=== PATIENT | male | born 1965 | race Two or more races ===

== ENCOUNTER 2022-03-16 19:13 | Inpatient (IN) | payer MEDICARE, OTHER ==
[~2022-03-16] VITALS: Ht 182.9 cm; Wt 108.0 kg
[2022-03-16 21:30] VITALS: BP 124/80
--- NOTE | 2022-03-16 21:30 | NUR ---
GPS MEAT GRADER NOTES: ADMITTED A 57-Y/O, MALE, FROM [facility]. ADMITTED ON 5150 FOR GD. PER HOLD, PATIENT WITH HISTORY OF SCHIZOPHRENIA, OFF MEDICATIONS FOR WEEKS, PRESENTS PLEASANT BUT DISORGANIZED AND CONFUSED, UNABLE TO FORMULATE PLAN FOR SELF CARE. UPON FACE TO FACE ASSESSMENT, PATIENT IS ALERT AND ORIENTED X3, COOPERATIVE, GUARDED, LABILE AND NEEDY. DENIED SI/HI/AVH AT THIS TIME. SKIN ASSESSMENT DONE. SKIN IS CLEAR. HANDBOOK AND PRESCRIPTION MEDICATIONS GUIDE GIVEN TO PATIENT. PATIENT HAS BEEN ORIENTED TO UNIT POLICY. BELONGINGS WERE INVENTORIED AND CHECKED FOR CONTRABAND. PATIENT IS UNDER THE PSYCHIATRIC CARE OF DR. PAVON AND MEDICAL CARE OF DR. OCAMPO. BED IN LOW AND LOCKED POSITION. SIDE RAILS UP X2. SAFETY PRECAUTIONS MAINTAINED. WILL CONTINUE TO MONITOR Q15 MINS FOR MOOD, SAFETY AND BEHAVIOR.
[2022-03-16] MEDS ORDERED: BLOOD SUGAR DIAGNOSTIC 1 EACH STRIP IN ONE (22:30)
[2022-03-16] MEDS ORDERED: MAGNESIUM HYDROXIDE 30 ML UDC PO PRN (22:30)
[2022-03-16] MEDS ORDERED: MAG HYDROX/AL HYDROX/SIMETH 30 ML UDC PO PRN (22:30)
[2022-03-16] MEDS: TEMAZEPAM 7.5 MG CAPSULE PO PRN (22:46)
[2022-03-16] MEDS: ACETAMINOPHEN 325 MG TABLET PO PRN (22:46)
[2022-03-17] MEDS: LORAZEPAM 0.5 MG TABLET PO PRN (01:46)
--- NOTE | 2022-03-17 01:48 | NUR ---
RN NOTES PT STATED FEELING ANXIOUS.PRN ATIVAN 0.5MG WAS GIVEN.NO SIGN SOB/DISTRESS NOTED.
[2022-03-17] MEDS ORDERED: LIDO30AD10 TP (02:04)
[2022-03-17] MEDS ORDERED: SIMV40TA2 PO (02:04)
[2022-03-17] MEDS ORDERED: PREG75CA PO (02:04)
[2022-03-17] MEDS ORDERED: NIAC1000 PO (02:04)
[2022-03-17] MEDS ORDERED: DIVA500T54 PO (02:04)
[2022-03-17] MEDS ORDERED: LUBI24CA5 PO (02:04)
[2022-03-17] MEDS ORDERED: PROP10TA68 PO (02:04)
[2022-03-17] MEDS ORDERED: MONT10TA22 PO (02:04)
[2022-03-17] MEDS ORDERED: SERT100T PO (02:04)
[2022-03-17] MEDS ORDERED: LEVO50TA PO (02:04)
[2022-03-17] MEDS ORDERED: TORADOL PO (02:04)
[2022-03-17] MEDS ORDERED: DEXL60CA3 PO (02:04)
[2022-03-17] MEDS ORDERED: CLON1TAB12 PO (02:04)
[2022-03-17] MEDS ORDERED: MIRT15TA3 PO (02:04)
[2022-03-17] MEDS ORDERED: IBUP-23 PO (02:04)
[2022-03-17] MEDS ORDERED: CANA100T PO (02:04)
[2022-03-17] MEDS ORDERED: CLOZ100T32 PO (02:04)
[2022-03-17] MEDS ORDERED: METF-442 PO (02:04)
[2022-03-17] MEDS ORDERED: NICO-761 TD (02:04)
[2022-03-17] MEDS ORDERED: KETOROLAC PO SCH (02:30)
--- NOTE | 2022-03-17 06:09 | NUR ---
GPS RN NOTES: LEFT VOICE MESSAGE TO PATIENT'S SISTER ARTUR WELCH ([phone]). WILL ENDORSE TO DAY SHIFT NURSE FOR CONTINUITY OF CARE.
[2022-03-17] MEDS: LEVOTHYROXINE SODIUM 50 MCG TABLET PO SCH (07:30)
[2022-03-17] MEDS: PANTOPRAZOLE 40 MG TABLET.DR PO SCH (07:30)
[2022-03-17 08:00] VITALS: BP 112/76
[2022-03-17] MEDS: METFORMIN 500 MG TABLET PO SCH ×2 (08:00→18:04)
[2022-03-17 08:08] LABS: CHOLESTEROL 189 mg/dL (<200); HDL CHOLESTEROL 43 mg/dL (40-60); LDL 85 mg/dL (0-99); TRIGLYCERIDES 461 mg/dL (30-150)
[2022-03-17 08:14] LABS: ALBUMIN 3.8 g/dL (3.4-5.0); BILIRUBIN,TOTAL 0.4 mg/dL (0.2-1.0); CALCIUM, SERUM 9.3 mg/dL (8.5-10.1); CREATININE 0.9 mg/dL (0.6-1.3); POTASSIUM 4.6 mmol/L (3.5-5.1); TOTAL PROTEIN, SERUM 7.6 g/dL (6.4-8.2)
[2022-03-17 08:48] LABS: THYROID STIMULATING HORMONE 4.627 uIU/mL (0.358-3.74)
[2022-03-17] MEDS ORDERED: DIVALPROEX SODIUM 500 MG TABLET.DR PO SCH (09:00)
[2022-03-17] MEDS ORDERED: NIACIN EXT TAB (500MG) 500 MG TABLET.SA PO SCH ×2 (09:00)
[2022-03-17] MEDS: MONTELUKAST SODIUM (10MG) 10 MG TABLET PO SCH (09:00)
[2022-03-17] MEDS: PROPRANOLOL HCL 10 MG TABLET PO SCH (09:00)
[2022-03-17] MEDS ORDERED: Medication Not On Formulary EA (Lubiprostone (Amitiza) 24 MCG) PO SCH (09:00)
[2022-03-17] MEDS: NICOTINE PATCH (14MG) 14 MG PATCH.TD24 TD SCH (09:37)
[2022-03-17] MEDS: LIDOCAINE 5% (PATCH) 1 EA PATCH TP SCH (09:37)
[2022-03-17] MEDS: PREGABALIN 25 MG CAPSULE PO SCH ×3 (09:38→17:59)
--- NOTE | 2022-03-17 11:29 | NUR ---
VEENA Initial Discharge Plan: Patient currently resides home alone located at [address] [place] [address]; ([phone]). Patient would want to return back home upon discharge. VEENA will work with the MD, treatment team, and family to help coordinate appropriate discharge.
--- NOTE | 2022-03-17 11:29 | NUR ---
VEENA Clinical Note: Patient placed on a 5150 hold for GD. Patient brought to the hospital due to not taking medications at home and has become disorganized. Patient currently resides home alone located at [address] [place] [phone]; ([phone]). Patient would want to return back home upon discharge.
[2022-03-17] MEDS ORDERED: CLOZAPINE 25 MG TABLET PO SCH ×2 (11:30→17:00)
--- NOTE | 2022-03-17 11:30 | NUR ---
Treatment Plan: Pt refused to sign treatment plan and was suspicious.
[2022-03-17] MEDS: DIVALPROEX SODIUM 500 MG TABLET.DR PO SCH ×2 (13:00→21:11)
--- NOTE | 2022-03-17 14:00 | NUR ---
VEENA Family Contact: VEENA contacted pt's sister Mary ([phone]) and discussed treatment/discharge plan.
[2022-03-17 14:57] LABS: BASOPHILS # (AUTO) 0.1 K/uL (0.0-0.2); BASOPHILS % (AUTO) 0.8 % (0.0-2.0); HEMATOCRIT 41 % (39-51); HEMOGLOBIN 13.7 g/dL (13.5-17.5); LYMPHOCYTES # (AUTO) 1.8 K/uL (0.8-4.8); LYMPHOCYTES % (AUTO) 26.8 % (20.0-44.0); MEAN CORPUSCULAR HGB CONC 34 g/dl (31.0-36.0); MEAN CORPUSCULAR VOLUME 89 fL (80-96); MONOCYTES # (AUTO) 0.9 K/uL (0.1-1.30); MONOCYTES % (AUTO) 13.4 % (2.0-12.0); PLATELET COUNT (AUTO) 88 K/uL (150-450); RED BLOOD CELL COUNT(AUTO) 4.55 MIL/uL (4.5-6.0); WHITE BLOOD COUNT (AUTO) 6.7 K/uL (4.3-11.0)
[2022-03-17 16:00] VITALS: BP 135/75
--- NOTE | 2022-03-17 17:41 | NUR ---
RN-CO: Patient is c/o big left toe pain. Dr Catherine ordered podiatry consult noted.
[2022-03-17 19:37] VITALS: BP 113/79
[2022-03-17] MEDS: SIMVASTATIN 20 MG TABLET PO SCH (21:11)
[2022-03-17] MEDS: ACETAMINOPHEN 325 MG TABLET PO PRN (21:12)
[2022-03-17] MEDS ORDERED: CLOZAPINE 100 MG TABLET PO SCH (22:00)
[2022-03-17] MEDS ORDERED: SIMVASTATIN 40 MG TABLET PO SCH (22:00)
[2022-03-17] MEDS ORDERED: MIRTAZAPINE SOLUTAB 15 MG/UDTABLET TAB.RAPDIS PO SCH (22:00)
[2022-03-17] MEDS: TEMAZEPAM 7.5 MG CAPSULE PO PRN (22:16)
[2022-03-18 08:00] VITALS: BP 139/70
--- NOTE | 2022-03-18 08:30 | NUR ---
C/O DIZZINESS,BP RECHECKED AND 123/75,HEART RATE 79,INSISTS ON WALKING AROUND ALTHOUGH NURSE ADVISED HIM TO LIE DOWN WITH THE DIZZINESS.
[2022-03-18] MEDS: PANTOPRAZOLE 40 MG TABLET.DR PO SCH (08:33)
[2022-03-18] MEDS: METFORMIN 500 MG TABLET PO SCH ×2 (08:33→17:58)
[2022-03-18] MEDS: PREGABALIN 25 MG CAPSULE PO SCH ×3 (08:34→17:59)
[2022-03-18] MEDS: PROPRANOLOL HCL 10 MG TABLET PO SCH (08:37)
[2022-03-18] MEDS: DIVALPROEX SODIUM 500 MG TABLET.DR PO SCH ×3 (08:40→21:34)
[2022-03-18] MEDS: MONTELUKAST SODIUM (10MG) 10 MG TABLET PO SCH (08:40)
[2022-03-18] MEDS: LIDOCAINE 5% (PATCH) 1 EA PATCH TP SCH (08:41)
[2022-03-18] MEDS: LEVOTHYROXINE SODIUM 50 MCG TABLET PO SCH (08:41)
[2022-03-18] MEDS: CLOZAPINE 25 MG TABLET PO SCH ×2 (09:00→17:59)
[2022-03-18] MEDS: NICOTINE PATCH (14MG) 14 MG PATCH.TD24 TD SCH (09:21)
[2022-03-18] MEDS ORDERED: MECLIZINE HCL 12.5 MG TABLET PO PRN (11:00)
[2022-03-18] MEDS: ACETAMINOPHEN 325 MG TABLET PO PRN (11:24)
--- NOTE | 2022-03-18 11:32 | NUR ---
MEDICATED WITH TYLENOL 650 MG FOR BACK AND NECK PAIN,BP RECHECKED IN ORDER TO GIVE CLOZARIL.AT THIS TIME 109/67 HEART RATE 81.STILL HOLDING CLOZARIL.
--- NOTE | 2022-03-18 12:00 | NUR ---
PT. VERBALIZED TO RN THAT HE FELT SUICIDAL.DR. PAVON IN FORMED.
[2022-03-18 16:00] VITALS: BP 138/70
[2022-03-18] MEDS: IBUPROFEN 200 MG TABLET PO PRN (16:22)
--- NOTE | 2022-03-18 16:26 | NUR ---
medicated for neck and back pain with motrin.
--- NOTE | 2022-03-18 18:25 | NUR ---
UA TO LAB.
[2022-03-18 20:00] VITALS: BP 115/72
[2022-03-18] MEDS: SIMVASTATIN 20 MG TABLET PO SCH (21:34)
[2022-03-18] MEDS ORDERED: CLOZAPINE 100 MG TABLET PO SCH (22:00)
[2022-03-19 06:36] LABS: BASOPHILS % (AUTO) 0.6 % (0.0-2.0); HEMATOCRIT 40 % (39-51); HEMOGLOBIN 14.1 g/dL (13.5-17.5); LYMPHOCYTES # (AUTO) 2.7 K/uL (0.8-4.8); LYMPHOCYTES % (AUTO) 41.6 % (20.0-44.0); MEAN CORPUSCULAR HGB CONC 35 g/dl (31.0-36.0); MEAN CORPUSCULAR VOLUME 88 fL (80-96); MONOCYTES # (AUTO) 0.7 K/uL (0.1-1.30); MONOCYTES % (AUTO) 10.9 % (2.0-12.0); NEUTROPHILS # (AUTO) 3.1 K/uL (1.8-8.9); NEUTROPHILS % (AUTO) 46.9 % (43.0-81.0); PLATELET COUNT (AUTO) 92 K/uL (150-450); RED BLOOD CELL COUNT(AUTO) 4.61 MIL/uL (4.5-6.0); WHITE BLOOD COUNT (AUTO) 6.6 K/uL (4.3-11.0)
[2022-03-19 07:07] LABS: CALCIUM, SERUM 9.1 mg/dL (8.5-10.1); MAGNESIUM 1.9 mg/dL (1.8-2.4); PHOSPHORUS 4.7 mg/dL (2.5-4.9); POTASSIUM 4.3 mmol/L (3.5-5.1)
[2022-03-19 08:00] VITALS: BP 120/64
[2022-03-19] MEDS: PANTOPRAZOLE 40 MG TABLET.DR PO SCH (08:07)
[2022-03-19] MEDS: METFORMIN 500 MG TABLET PO SCH ×2 (08:07→17:01)
[2022-03-19] MEDS: NICOTINE PATCH (14MG) 14 MG PATCH.TD24 TD SCH (08:07)
[2022-03-19] MEDS: DIVALPROEX SODIUM 500 MG TABLET.DR PO SCH ×3 (08:07→16:58)
[2022-03-19] MEDS: MONTELUKAST SODIUM (10MG) 10 MG TABLET PO SCH (08:07)
[2022-03-19] MEDS: PREGABALIN 25 MG CAPSULE PO SCH ×3 (08:07→16:59)
[2022-03-19] MEDS: CLOZAPINE 25 MG TABLET PO SCH ×2 (08:08→16:59)
[2022-03-19] MEDS: PROPRANOLOL HCL 10 MG TABLET PO SCH (08:08)
[2022-03-19] MEDS: LIDOCAINE 5% (PATCH) 1 EA PATCH TP SCH (08:08)
[2022-03-19] MEDS: LEVOTHYROXINE SODIUM 50 MCG TABLET PO SCH (08:08)
[2022-03-19 08:32] LABS: LYMPHOCYTES % (MANUAL) 39 % (16-48); MONOCYTES % (MANUAL) 13 % (0-11.0); NEUTROPHILS % (MANUAL) 48 (42-76)
--- NOTE | 2022-03-19 09:40 | NUR ---
WOUND CARE CONSULT: PT PRESENTS WITH CALLUSES TO BILATERAL GREAT TOES WITH PEELING SKIN BETWEEN TOES, PRESENT ON ADMISSION. PT REPORTS PAIN IN LEFT GREAT TOE. PT REFUSED FULL SKIN ASSESSMENT OF GROIN/BUTTOCKS AREAS. DR RUIZ NOTIFIED OF DPM CONSULT REQUEST. MD IN AGREEMENT WITH PLAN OF CARE.
[2022-03-19] MEDS: POLYETHYLENE GLYCOL 3350 17 GM POWD.PACK PO SCH (11:36)
[2022-03-19] MEDS: DOCUSATE SODIUM LIQ 100 MG/10 ML UDC PO SCH ×2 (11:36→17:00)
--- NOTE | 2022-03-19 14:22 | NUR ---
VEENA Note: Pt came to this writers office and appeared to be anxious. He reported that he does not want to go back home and wants to go to a facility. SW offered him facilities in [place] location and he was agreeable.
--- NOTE | 2022-03-19 14:23 | NUR ---
VEENA Family Contact: SW contacted pt's sister Mary ([phone]) and explained that pt came to this writers office and was anxious requesting to go to a facility instead of back home. She was agreeable of this.
--- NOTE | 2022-03-19 14:49 | NUR ---
SNF Referral: VEENA sent clinicals to Vikram from [facility] ([phone]) for placement option. SW sent H & P, progress notes, and medication list.
[2022-03-19 16:00] VITALS: BP 118/72
--- NOTE | 2022-03-19 19:30 | NUR ---
GPS RN NOTE, RECEIVED PATIENT AWAKE AND IN BED, NO S/S OR COMPLAINTS OF PAIN AT THIS TIME. PATIENT IS DISPLAYING NO S/S OF APPARENT DISTRESS AT THIS TIME. PATIENT BREATHING IS UNLABORED WITH EQUAL RISE AND FALL OF THE CHEST. PATIENT IS ALERT AND ORIENTED X 3 ON ROOM AIR WITH A SPO2 95%. PATIENT IS COMPLIANT WITH MEDICATIONS, ANXIOUS AT TIMES, NEEDY, AND COOPERATIVE. PATIENT DENIES SUICIDAL AND HOMICIDAL IDEATIONS AT THIS TIME. PATIENT ASSISTED WITH TURNING AND REPOSITIONING Q2HR AND PRN FOR COMFORT AND CIRCULATION. PATIENT HAS NO NEEDS AT THIS TIME. PATIENT EDUCATED ON THE USE OF THE CALL STALLWORTH. PATIENT BED SIDE RAILS UP X 2 FOR SAFETY. PATIENT BED IS LOCKED, LOW, WITH BED ALARM ON. WILL CONTINUE TO MONITOR THIS PATIENT Q15 MINUTES WITH THE HELP OF STAFF TO MAINTAIN SAFETY.
[2022-03-19 20:00] VITALS: BP 125/86
[2022-03-19] MEDS: SIMVASTATIN 20 MG TABLET PO SCH (21:27)
[2022-03-19] MEDS: TEMAZEPAM 7.5 MG CAPSULE PO PRN (21:28)
--- NOTE | 2022-03-19 21:28 | NUR ---
GPS RN NOTE, PATIENT HAS A COMPLAINT OF NOT BEING ABLE TO SLEEP AND IS REQUESTING RESTORIL AT THIS TIME. PATIENT VITAL SIGNS ARE STABLE. GAVE RESTORIL 7.5MG PO HS PRN ORDERED. WILL REASSESS FOR INSOMNIA AND I WILL CONTINUE TO MONITOR THIS PATIENT WITH THE HELP OF STAFF.
[2022-03-19] MEDS ORDERED: CLOZAPINE 100 MG TABLET PO SCH (22:00)
[2022-03-20] MEDS: LORAZEPAM 0.5 MG TABLET PO PRN (02:03)
--- NOTE | 2022-03-20 02:03 | NUR ---
GPS RN NOTE, PATIENT HAS A COMPLAINT OF FEELING ANXIOUS AND IS REQUESTING ATIVAN AT THIS TIME. PATIENT VITAL SIGNS ARE STABLE. GAVE ATIVAN 0.5MG PO Q6HR PRN ORDERED. WILL REASSESS FOR ANXIETY AND I WILL CONTINUE TO MONITOR THIS PATIENT WITH THE HELP OF STAFF.
[2022-03-20 06:44] LABS: BASOPHILS % (AUTO) 0.8 % (0.0-2.0); HEMATOCRIT 39 % (39-51); HEMOGLOBIN 13.5 g/dL (13.5-17.5); LYMPHOCYTES # (AUTO) 2.4 K/uL (0.8-4.8); LYMPHOCYTES % (AUTO) 40.1 % (20.0-44.0); MEAN CORPUSCULAR HGB CONC 35 g/dl (31.0-36.0); MEAN CORPUSCULAR VOLUME 87 fL (80-96); MONOCYTES # (AUTO) 0.8 K/uL (0.1-1.30); MONOCYTES % (AUTO) 13.1 % (2.0-12.0); NEUTROPHILS # (AUTO) 2.7 K/uL (1.8-8.9); PLATELET COUNT (AUTO) 84 K/uL (150-450); RED BLOOD CELL COUNT(AUTO) 4.47 MIL/uL (4.5-6.0)
[2022-03-20 07:20] LABS: ALBUMIN 3.5 g/dL (3.4-5.0); BILIRUBIN,TOTAL 0.7 mg/dL (0.2-1.0); CREATININE 1.2 mg/dL (0.6-1.3); POTASSIUM 4.1 mmol/L (3.5-5.1); TOTAL PROTEIN, SERUM 7.2 g/dL (6.4-8.2)
[2022-03-20 08:00] VITALS: BP 111/76
[2022-03-20] MEDS: POLYETHYLENE GLYCOL 3350 17 GM POWD.PACK PO SCH (08:26)
[2022-03-20] MEDS: NICOTINE PATCH (14MG) 14 MG PATCH.TD24 TD SCH (08:26)
[2022-03-20] MEDS: MONTELUKAST SODIUM (10MG) 10 MG TABLET PO SCH (08:26)
[2022-03-20] MEDS: PREGABALIN 25 MG CAPSULE PO SCH ×3 (08:26→16:47)
[2022-03-20] MEDS: LIDOCAINE 5% (PATCH) 1 EA PATCH TP SCH (08:26)
[2022-03-20] MEDS: METFORMIN 500 MG TABLET PO SCH ×2 (08:26→17:24)
[2022-03-20] MEDS: PROPRANOLOL HCL 10 MG TABLET PO SCH (08:27)
[2022-03-20] MEDS: DIVALPROEX SODIUM 500 MG TABLET.DR PO SCH ×3 (08:27→16:49)
[2022-03-20] MEDS: CLOZAPINE 25 MG TABLET PO SCH ×2 (08:28→16:49)
[2022-03-20] MEDS: DOCUSATE SODIUM LIQ 100 MG/10 ML UDC PO SCH ×2 (08:28→16:49)
[2022-03-20] MEDS: PANTOPRAZOLE 40 MG TABLET.DR PO SCH (08:28)
[2022-03-20] MEDS: LEVOTHYROXINE SODIUM 50 MCG TABLET PO SCH (08:28)
--- NOTE | 2022-03-20 09:12 | NUR ---
Pt. is complaining of burning and like he is on fire after taking the meds. Redness noted on the face, v/s taken: BP 118/79, DE 94, RR 18, temp 98.3 and oxygen sat 98%. Called Dr. Chawla at 09 and awaiting for the call back. Addendum: 03/20/22 at 0926 by STALIN MCNEAL RN Per pt. like he is on fire.
[2022-03-20] MEDS ORDERED: LIDOCAINE 5% OINT 35.44 GM TUBE TP PRN ×2 (09:30→10:00)
--- NOTE | 2022-03-20 09:54 | NUR ---
Called Dr. Chawla and was notified and ordered to stop Niacin.
--- NOTE | 2022-03-20 10:10 | NUR ---
RN Notes: Received pt. asleep in bed, breathing is even and unlabored. Ate 100% for breakfast and compliant on meds. Pt. is complaining of burning and said like he is on fire after taking the meds. Redness noted on the face, v/s taken: BP 118/79, UT 94, RR 18, temp 98.3 and oxygen sat 98%. Called Dr. Chawla and ordered to stopped the Niacin. Encouraged to attend group activity and encouraged to verbalize feelings. Will continue to monitor for safety.
--- NOTE | 2022-03-20 10:41 | NUR ---
SNF Contact: SW spoke with Vikram from [facility] ([phone]) who stated pt is accepted.
--- NOTE | 2022-03-20 14:35 | NUR ---
Court Notification: SW attempted to contact pt's sister aMry ([phone]) to notify of 5250 hearing. SW left a voicemail.
--- NOTE | 2022-03-20 15:01 | NUR ---
Court Hearing: Patient's court hearing for 4750 was today and it was upheld for GD.
[2022-03-20 16:00] VITALS: BP 118/74
[2022-03-20] MEDS: CLOTRIMAZOLE 1% 15 GM TUBE TP SCH (16:23)
[2022-03-20] MEDS: AMMONIUM LACTATE 227 GM BOTTLE TP SCH (16:24)
[2022-03-20 20:23] VITALS: BP 118/76
[2022-03-20 21:02] LABS: BILIRUBIN,URINE NEGATIVE (NEGATIVE); COLOR,URINE YELLOW (YELLOW); LEUKOCYTE ESTERASE ,URINE NEGATIVE (NEGATIVE); NITRITE, URINE NEGATIVE (NEGATIVE); PROTEIN,URINE TRACE mg/dl (NEGATIVE); UGLUCOSE NEGATIVE (NEGATIVE); UROBILINOGEN,URINE 0.2 EU/dL (0.2)
[2022-03-20] MEDS: TEMAZEPAM 7.5 MG CAPSULE PO PRN (21:09)
[2022-03-20] MEDS: SIMVASTATIN 20 MG TABLET PO SCH (21:10)
[2022-03-20 21:16] LABS: BACTERIA,URINE None seen /HPF (None Seen); MUCUS,URINE Few /LPF (None Seen); RBC,URINE 0-2 /HPF (0-2); SQUAMOUS EPITHELIAL CELL,UR 0-2 /HPF (None Seen); WBC,URINE 0-2 /HPF (0-3)
[2022-03-20] MEDS ORDERED: CLOZAPINE 100 MG TABLET PO SCH (22:00)
[2022-03-21] MEDS: LORAZEPAM 0.5 MG TABLET PO PRN (01:57)
[2022-03-21 08:00] VITALS: BP 119/65
[2022-03-21] MEDS: METFORMIN 500 MG TABLET PO SCH ×2 (08:28→17:07)
[2022-03-21] MEDS: NICOTINE PATCH (14MG) 14 MG PATCH.TD24 TD SCH (08:28)
[2022-03-21] MEDS: LIDOCAINE 5% (PATCH) 1 EA PATCH TP SCH (08:28)
[2022-03-21] MEDS: CLOZAPINE 25 MG TABLET PO SCH ×2 (08:28→16:27)
[2022-03-21] MEDS: PREGABALIN 25 MG CAPSULE PO SCH ×3 (08:28→16:27)
[2022-03-21] MEDS: PROPRANOLOL HCL 10 MG TABLET PO SCH (08:29)
[2022-03-21] MEDS: LEVOTHYROXINE SODIUM 50 MCG TABLET PO SCH (08:29)
[2022-03-21] MEDS: PANTOPRAZOLE 40 MG TABLET.DR PO SCH (08:29)
[2022-03-21] MEDS: MONTELUKAST SODIUM (10MG) 10 MG TABLET PO SCH (08:29)
[2022-03-21] MEDS: DIVALPROEX SODIUM 500 MG TABLET.DR PO SCH ×3 (08:29→16:27)
[2022-03-21] MEDS: DOCUSATE SODIUM LIQ 100 MG/10 ML UDC PO SCH ×2 (08:30→16:28)
[2022-03-21] MEDS: POLYETHYLENE GLYCOL 3350 17 GM POWD.PACK PO SCH (08:30)
[2022-03-21] MEDS: AMMONIUM LACTATE 227 GM BOTTLE TP SCH ×2 (09:09→16:32)
[2022-03-21] MEDS: CLOTRIMAZOLE 1% 15 GM TUBE TP SCH ×2 (09:09→16:32)
--- NOTE | 2022-03-21 09:34 | NUR ---
RN Notes: Received pt. asleep in bed, breathing is even and unlabored. Ate 100% for breakfast, compliant on meds. Pt. had shower and skin ointment applied and pt. is cooperative with the treatment. Encouraged to verbalize feelings and motivated to attend group activity. Needs attended and will continue to monitor for safety.
[2022-03-21 16:00] VITALS: BP 128/84
--- NOTE | 2022-03-21 19:30 | NUR ---
GPS RN NOTE, RECEIVED PATIENT AWAKE AND IN BED, NO S/S OR COMPLAINTS OF PAIN AT THIS TIME. PATIENT IS DISPLAYING NO S/S OF APPARENT DISTRESS AT THIS TIME. PATIENT BREATHING IS UNLABORED WITH EQUAL RISE AND FALL OF THE CHEST. PATIENT IS ALERT AND ORIENTED X 3 ON ROOM AIR WITH A SPO2 98%. PATIENT IS COMPLIANT WITH MEDICATIONS, ANXIOUS AT TIMES, NEEDY, HYPERVERBAL, FOCUSED ON DISCHARGE, AND COOPERATIVE. PATIENT DENIES SUICIDAL AND HOMICIDAL IDEATIONS AT THIS TIME. PATIENT ASSISTED WITH TURNING AND REPOSITIONING Q2HR AND PRN FOR COMFORT AND CIRCULATION. PATIENT HAS NO NEEDS AT THIS TIME. PATIENT EDUCATED ON THE USE OF THE CALL STALLWORTH. PATIENT BED SIDE RAILS UP X 2 FOR SAFETY. PATIENT BED IS LOCKED, LOW, WITH BED ALARM ON. WILL CONTINUE TO MONITOR THIS PATIENT Q15 MINUTES WITH THE HELP OF STAFF TO MAINTAIN SAFETY.
[2022-03-21 20:11] VITALS: BP 112/66
[2022-03-21] MEDS: IBUPROFEN 200 MG TABLET PO PRN (20:27)
--- NOTE | 2022-03-21 20:30 | NUR ---
GPS RN NOTE, PATIENT HAS A COMPLAINT OF CHRONIC PAIN AT A 8 OUT 10 ON THE PAIN SCALE AND IS REQUESTING MOTRIN AT THIS TIME. PATIENT VITAL SIGNS ARE STABLE. GAVE MOTRIN 600MG PO Q6HR PRN ORDERED. WILL REASSESS PAIN AND I WILL CONTINUE TO MONITOR THIS PATIENT WITH THE HELP OF STAFF.
[2022-03-21] MEDS: CLOZAPINE 100 MG TABLET PO SCH (21:27)
[2022-03-21] MEDS: SIMVASTATIN 20 MG TABLET PO SCH (21:27)
[2022-03-21] MEDS: TEMAZEPAM 7.5 MG CAPSULE PO PRN (21:27)
[2022-03-22] MEDS: LORAZEPAM 0.5 MG TABLET PO PRN ×2 (01:42→13:03)
--- NOTE | 2022-03-22 07:49 | NUR ---
RN NOTE PATIENT IS AWAKE IN BED RESTING A/O X 3. NO S/S OF PAIN NOTED AT THIS TIME. ON ROOM AIR, NO DISTRESS OR SHORTNESS OF BREATH NOTED. PATIENT IS COMPLIANT WITH MEDICATIONS. PATIENT DENIES SUICIDAL AND HOMICIDAL IDEATIONS AT THIS TIME. FALL AND SAFETY MEASURES IN PLACE, BED IN LOW AND LOCK POSITION, CALL LIGHT AND TABLE WITHIN EASY REACH, SIDE RAILS UP X2. PATIENT EDUCATED ON THE USE OF THE CALL STALLWORTH. PATIENT HAS NO NEEDS AT THIS TIME. WILL CONTINUE TO MONITOR THIS PATIENT Q15 MINUTES TO MAINTAIN SAFETY.
[2022-03-22 08:00] VITALS: BP 129/71
[2022-03-22] MEDS: LIDOCAINE 5% (PATCH) 1 EA PATCH TP SCH (08:36)
[2022-03-22] MEDS: METFORMIN 500 MG TABLET PO SCH ×2 (08:36→17:33)
[2022-03-22] MEDS: LEVOTHYROXINE SODIUM 50 MCG TABLET PO SCH (08:36)
[2022-03-22] MEDS: NICOTINE PATCH (14MG) 14 MG PATCH.TD24 TD SCH (08:36)
[2022-03-22] MEDS: DOCUSATE SODIUM LIQ 100 MG/10 ML UDC PO SCH ×3 (08:36→17:00)
[2022-03-22] MEDS: POLYETHYLENE GLYCOL 3350 17 GM POWD.PACK PO SCH ×2 (08:36→09:00)
[2022-03-22] MEDS: MONTELUKAST SODIUM (10MG) 10 MG TABLET PO SCH (08:37)
[2022-03-22] MEDS: DIVALPROEX SODIUM 500 MG TABLET.DR PO SCH ×3 (08:37→17:25)
[2022-03-22] MEDS: PROPRANOLOL HCL 10 MG TABLET PO SCH (08:37)
[2022-03-22] MEDS: PREGABALIN 25 MG CAPSULE PO SCH ×3 (08:37→17:25)
[2022-03-22] MEDS: CLOZAPINE 25 MG TABLET PO SCH ×2 (08:38→17:30)
[2022-03-22] MEDS: CLOTRIMAZOLE 1% 15 GM TUBE TP SCH ×2 (08:44→17:28)
[2022-03-22] MEDS: AMMONIUM LACTATE 227 GM BOTTLE TP SCH ×2 (08:44→17:27)
[2022-03-22] MEDS: IBUPROFEN 200 MG TABLET PO PRN ×3 (08:55→21:27)
[2022-03-22] MEDS: PANTOPRAZOLE 40 MG TABLET.DR PO SCH (09:18)
[2022-03-22 16:00] VITALS: BP 118/55
--- NOTE | 2022-03-22 18:39 | NUR ---
RN CLOSING NOTE PATIENT IS AWAKE IN BED RESTING A/O X 3. NO S/S OF PAIN NOTED AT THIS TIME. ON ROOM AIR, NO DISTRESS OR SHORTNESS OF BREATH NOTED. PATIENT IS COMPLIANT WITH MEDICATIONS. PATIENT DENIES SUICIDAL AND HOMICIDAL IDEATIONS AT THIS TIME. FALL AND SAFETY MEASURES IN PLACE, BED IN LOW AND LOCK POSITION, CALL LIGHT AND TABLE WITHIN EASY REACH, SIDE RAILS UP X2. PATIENT EDUCATED ON THE USE OF THE CALL STALLWORTH. PATIENT HAS NO NEEDS AT THIS TIME. PATIENT WAS MONITOR Q15 MINUTES TO MAINTAIN SAFETY. WILL ENDORSE TO LICENSE ISSUER.
[2022-03-22 19:43] VITALS: BP 104/57
[2022-03-22 20:00] VITALS: BP 129/71
--- NOTE | 2022-03-22 20:37 | NUR ---
RN OPENING NOTES RECEIVED PT IN [address] WALKING WITH NO BEHAVIORAL CHANGES NOTED.CONTINUE TO MONITOR.
[2022-03-22] MEDS: SIMVASTATIN 20 MG TABLET PO SCH (21:11)
[2022-03-22] MEDS: CLOZAPINE 100 MG TABLET PO SCH (21:11)
[2022-03-23] MEDS: LEVOTHYROXINE SODIUM 50 MCG TABLET PO SCH (07:30)
[2022-03-23] MEDS: PANTOPRAZOLE 40 MG TABLET.DR PO SCH (07:30)
[2022-03-23 08:00] VITALS: BP 124/77
[2022-03-23] MEDS: DIVALPROEX SODIUM 500 MG TABLET.DR PO SCH ×3 (08:59→17:32)
[2022-03-23] MEDS: POLYETHYLENE GLYCOL 3350 17 GM POWD.PACK PO SCH (08:59)
[2022-03-23] MEDS: NICOTINE PATCH (14MG) 14 MG PATCH.TD24 TD SCH (08:59)
[2022-03-23] MEDS: MONTELUKAST SODIUM (10MG) 10 MG TABLET PO SCH (08:59)
[2022-03-23] MEDS: METFORMIN 500 MG TABLET PO SCH ×2 (08:59→17:30)
[2022-03-23] MEDS: PROPRANOLOL HCL 10 MG TABLET PO SCH (09:00)
[2022-03-23] MEDS: PREGABALIN 25 MG CAPSULE PO SCH ×3 (09:00→17:30)
[2022-03-23] MEDS: CLOZAPINE 25 MG TABLET PO SCH ×2 (09:00→17:30)
[2022-03-23] MEDS: DOCUSATE SODIUM LIQ 100 MG/10 ML UDC PO SCH ×2 (09:00→17:30)
[2022-03-23] MEDS: CLOTRIMAZOLE 1% 15 GM TUBE TP SCH ×2 (09:03→17:33)
[2022-03-23] MEDS: AMMONIUM LACTATE 227 GM BOTTLE TP SCH ×2 (09:03→17:33)
[2022-03-23] MEDS: LIDOCAINE 5% (PATCH) 1 EA PATCH TP SCH (09:05)
[2022-03-23 16:00] VITALS: BP 106/57
--- NOTE | 2022-03-23 19:38 | NUR ---
GPS RN NOTE RECEIVED PATIENT SLEEPING IN BED A/O X 3. NO S/S OF PAIN NOTED AT THIS TIME. ON ROOM AIR, NO DISTRESS OR SHORTNESS OF BREATH NOTED. PATIENT IS COMPLIANT WITH MEDICATIONS. PATIENT DENIES SUICIDAL AND HOMICIDAL IDEATIONS AT THIS TIME. FALL AND SAFETY MEASURES IN PLACE, BED IN LOW AND LOCK POSITION, CALL LIGHT AND TABLE WITHIN EASY REACH, SIDE RAILS UP X2. WILL CONTINUE TO MONITOR THROUGHOUT THE SHIFT.
[2022-03-23 20:31] VITALS: BP 107/52
[2022-03-23] MEDS: CLOZAPINE 100 MG TABLET PO SCH (21:24)
[2022-03-23] MEDS: SIMVASTATIN 20 MG TABLET PO SCH (21:25)
[2022-03-23] MEDS: TEMAZEPAM 7.5 MG CAPSULE PO PRN (22:50)
--- NOTE | 2022-03-24 06:40 | NUR ---
GPS RN CLOSING NOTE PATIENT SLEEPING IN BED A/O X 3, ABLE TO MAKE NEEDS KNOWN, NO S/S OF PAIN NOTED AT THIS TIME. ON ROOM AIR, NO DISTRESS OR SHORTNESS OF BREATH NOTED. PATIENT IS COMPLIANT WITH MEDICATIONS. ALL DUE MEDS GIVEN MD ORDERED. FALL AND SAFETY MEASURES IN PLACE, BED IN LOWEST AND LOCK POSITION, CALL LIGHT AND TABLE WITHIN EASY REACH, SIDE RAILS UP X2. WILL ENDORSE TO AM SHIFT FOR ABRAM.
[2022-03-24] MEDS: PANTOPRAZOLE 40 MG TABLET.DR PO SCH (07:30)
[2022-03-24] MEDS: LEVOTHYROXINE SODIUM 50 MCG TABLET PO SCH (07:30)
[2022-03-24 08:00] VITALS: BP 114/76
[2022-03-24] MEDS: DOCUSATE SODIUM LIQ 100 MG/10 ML UDC PO SCH ×2 (08:49→17:00)
[2022-03-24] MEDS: DIVALPROEX SODIUM 500 MG TABLET.DR PO SCH ×3 (08:49→17:22)
[2022-03-24] MEDS: NICOTINE PATCH (14MG) 14 MG PATCH.TD24 TD SCH (08:49)
[2022-03-24] MEDS: POLYETHYLENE GLYCOL 3350 17 GM POWD.PACK PO SCH (08:49)
[2022-03-24] MEDS: PREGABALIN 25 MG CAPSULE PO SCH ×3 (08:50→17:21)
[2022-03-24] MEDS: MONTELUKAST SODIUM (10MG) 10 MG TABLET PO SCH (08:50)
[2022-03-24] MEDS: METFORMIN 500 MG TABLET PO SCH ×2 (08:50→17:38)
[2022-03-24] MEDS: LIDOCAINE 5% (PATCH) 1 EA PATCH TP SCH (08:50)
[2022-03-24] MEDS: PROPRANOLOL HCL 10 MG TABLET PO SCH (08:50)
[2022-03-24] MEDS: CLOZAPINE 25 MG TABLET PO SCH ×2 (08:50→17:22)
[2022-03-24] MEDS: CLOTRIMAZOLE 1% 15 GM TUBE TP SCH ×2 (08:51→17:22)
[2022-03-24] MEDS: AMMONIUM LACTATE 227 GM BOTTLE TP SCH ×2 (08:51→17:24)
[2022-03-24] MEDS: IBUPROFEN 200 MG TABLET PO PRN (08:58)
--- NOTE | 2022-03-24 09:39 | NUR ---
VEENA Note: SW received a call from pt's lining caser Silas ([phone]) and wanted update on pt's current condition and discharge plan.
[2022-03-24 16:00] VITALS: BP 125/72
[2022-03-24 20:16] VITALS: BP 101/64
[2022-03-24] MEDS: SIMVASTATIN 20 MG TABLET PO SCH (21:32)
[2022-03-24] MEDS: CLOZAPINE 100 MG TABLET PO SCH (21:33)
[2022-03-25 08:00] VITALS: BP 119/64
[2022-03-25] MEDS: METFORMIN 500 MG TABLET PO SCH ×2 (08:18→17:07)
[2022-03-25] MEDS: PANTOPRAZOLE 40 MG TABLET.DR PO SCH (08:18)
[2022-03-25] MEDS: LEVOTHYROXINE SODIUM 50 MCG TABLET PO SCH (08:18)
[2022-03-25] MEDS: DOCUSATE SODIUM LIQ 100 MG/10 ML UDC PO SCH ×2 (08:37→16:35)
[2022-03-25] MEDS: DIVALPROEX SODIUM 500 MG TABLET.DR PO SCH ×3 (08:37→16:35)
[2022-03-25] MEDS: PREGABALIN 25 MG CAPSULE PO SCH ×3 (08:37→16:35)
[2022-03-25] MEDS: CLOZAPINE 25 MG TABLET PO SCH ×2 (08:37→16:35)
[2022-03-25] MEDS: NICOTINE PATCH (14MG) 14 MG PATCH.TD24 TD SCH (08:37)
[2022-03-25] MEDS: POLYETHYLENE GLYCOL 3350 17 GM POWD.PACK PO SCH (08:37)
[2022-03-25] MEDS: MONTELUKAST SODIUM (10MG) 10 MG TABLET PO SCH (08:37)
[2022-03-25] MEDS: PROPRANOLOL HCL 10 MG TABLET PO SCH (08:38)
[2022-03-25] MEDS: LIDOCAINE 5% (PATCH) 1 EA PATCH TP SCH (08:38)
[2022-03-25] MEDS: AMMONIUM LACTATE 227 GM BOTTLE TP SCH ×2 (09:52→16:39)
[2022-03-25] MEDS: CLOTRIMAZOLE 1% 15 GM TUBE TP SCH ×2 (09:53→16:39)
[2022-03-25] MEDS: IBUPROFEN 200 MG TABLET PO PRN (11:35)
--- NOTE | 2022-03-25 11:35 | NUR ---
RN-NOTES PATIENT REQUESTING MOTRIN FOR LOWER BACK PAIN. MOTRIN 600MG P.O GIVEN PRN ORDER.
--- NOTE | 2022-03-25 12:35 | NUR ---
RN-NOTES PATIENT STATED" MOTRIN HELPS WITH MY LOWER BACK PAIN".
[2022-03-25 16:00] VITALS: BP 110/59
--- NOTE | 2022-03-25 18:13 | NUR ---
RN-NOTES PATIENT IS VISIBLE IN THE UNIT CALM AND COOPERATIVE ABLE TO MAKE NEEDS KNOWN TO THE STAFF,PARTICIPATES IN THE GROUP.COMPLIANT WITH MEDICATIONS,NO ACUTE DISTRESS NOTED. AMBULATORY STEADY GAIT.WILL CONT. MONITORING FOR SAFETY AND BEHAVIOR. WILL ENDORSE TO INCOMING NURSE FOR CONTINUITY OF CARE.
[2022-03-25 20:00] VITALS: BP 107/63
[2022-03-25] MEDS: SIMVASTATIN 20 MG TABLET PO SCH (21:25)
[2022-03-25] MEDS ORDERED: CLOZAPINE 100 MG TABLET PO SCH (22:00)
[2022-03-25] MEDS: TEMAZEPAM 7.5 MG CAPSULE PO PRN (23:52)
[2022-03-26 06:56] LABS: BASOPHILS % (AUTO) 0.8 % (0.0-2.0); HEMATOCRIT 37 % (39-51); HEMOGLOBIN 12.6 g/dL (13.5-17.5); LYMPHOCYTES # (AUTO) 2.3 K/uL (0.8-4.8); LYMPHOCYTES % (AUTO) 45.8 % (20.0-44.0); MEAN CORPUSCULAR HGB CONC 35 g/dl (31.0-36.0); MEAN CORPUSCULAR VOLUME 88 fL (80-96); MONOCYTES # (AUTO) 0.5 K/uL (0.1-1.30); NEUTROPHILS # (AUTO) 2.2 K/uL (1.8-8.9); NEUTROPHILS % (AUTO) 44.4 % (43.0-81.0); PLATELET COUNT (AUTO) 82 K/uL (150-450); RED BLOOD CELL COUNT(AUTO) 4.16 MIL/uL (4.5-6.0)
[2022-03-26 07:18] LABS: ALBUMIN 3.4 g/dL (3.4-5.0); BILIRUBIN,TOTAL 0.4 mg/dL (0.2-1.0); CALCIUM, SERUM 9.1 mg/dL (8.5-10.1); CREATININE 0.8 mg/dL (0.6-1.3); POTASSIUM 4.5 mmol/L (3.5-5.1); TOTAL PROTEIN, SERUM 6.9 g/dL (6.4-8.2)
[2022-03-26 08:00] VITALS: BP 127/75
[2022-03-26] MEDS: LEVOTHYROXINE SODIUM 50 MCG TABLET PO SCH (08:23)
[2022-03-26] MEDS: PANTOPRAZOLE 40 MG TABLET.DR PO SCH (08:23)
[2022-03-26] MEDS: METFORMIN 500 MG TABLET PO SCH ×2 (08:24→17:09)
[2022-03-26] MEDS: CLOZAPINE 25 MG TABLET PO SCH ×2 (08:56→17:09)
[2022-03-26] MEDS: MONTELUKAST SODIUM (10MG) 10 MG TABLET PO SCH (08:56)
[2022-03-26] MEDS: DIVALPROEX SODIUM 500 MG TABLET.DR PO SCH ×3 (08:56→17:09)
[2022-03-26] MEDS: PREGABALIN 25 MG CAPSULE PO SCH ×3 (08:56→17:09)
[2022-03-26] MEDS: NICOTINE PATCH (14MG) 14 MG PATCH.TD24 TD SCH (08:56)
[2022-03-26] MEDS: POLYETHYLENE GLYCOL 3350 17 GM POWD.PACK PO SCH (08:57)
[2022-03-26] MEDS: PROPRANOLOL HCL 10 MG TABLET PO SCH (08:57)
[2022-03-26] MEDS: LIDOCAINE 5% (PATCH) 1 EA PATCH TP SCH (08:57)
[2022-03-26] MEDS: DOCUSATE SODIUM LIQ 100 MG/10 ML UDC PO SCH ×2 (09:00→17:00)
[2022-03-26] MEDS: AMMONIUM LACTATE 227 GM BOTTLE TP SCH ×2 (09:08→17:13)
[2022-03-26] MEDS: CLOTRIMAZOLE 1% 15 GM TUBE TP SCH ×2 (09:08→17:13)
--- NOTE | 2022-03-26 13:29 | NUR ---
VEENA Family Contact: VEENA contacted pt's sister Mary ([phone]) who stated that prior to pt going to [facility] he had fell at home and hit his head. She reported that she assumes that [facility] did a CT scan. VEENA looked through pt's records and was unable to find any information on reports of a fall or CT scan. VEENA notified Dr. Tong and she requested a CT scan. VEENA notified EMELY Gasca to request. Sister, was concerned of pt paying for pt's rent she reported that she would want a letter indicating that pt is at the hospital getting his treatment. VEENA will mail it out to sister.
--- NOTE | 2022-03-26 13:32 | NUR ---
VEENA Note: VEENA wrote a letter indicating that pt is at the hospital getting his treatment. VEENA will mail it out to sister Mary; [phone]) [address] [place] [address]. VEENA placed a copy in the chart.
--- NOTE | 2022-03-26 13:35 | NUR ---
RN-NOTES T.O ORDER FROM DR. PAVON FOR CT OF THE HEAD WITHOUT CONTRAST. NOTED AND CARRIED OUT.
[2022-03-26 16:00] VITALS: BP 127/72
[2022-03-26 20:00] VITALS: BP 123/68
[2022-03-26] MEDS: CLOZAPINE 100 MG TABLET PO SCH (21:33)
[2022-03-26] MEDS: SIMVASTATIN 20 MG TABLET PO SCH (21:34)
--- NOTE | 2022-03-27 06:12 | NUR ---
RN-NOTES PATIENT RESTING IN ROOM, EASILY AGITATED ,PARNOID, CALM AND COOPERATIVE IN SHIFT. COMPLIANT WITH MEDICATIONS,NO ACUTE DISTRESS . SAFETY PRECAUTIONS IN PLACED, ALL NEEDS ATTENDED AND ANTICIPATED. WILL CONT. MONITORING FOR SAFETY AND BEHAVIOR.
[2022-03-27 08:00] VITALS: BP 100/60
[2022-03-27] MEDS: CLOZAPINE 25 MG TABLET PO SCH ×2 (08:30→16:43)
[2022-03-27] MEDS: NICOTINE PATCH (14MG) 14 MG PATCH.TD24 TD SCH (08:30)
[2022-03-27] MEDS: METFORMIN 500 MG TABLET PO SCH ×2 (08:30→17:08)
[2022-03-27] MEDS: DIVALPROEX SODIUM 500 MG TABLET.DR PO SCH ×3 (08:30→16:43)
[2022-03-27] MEDS: PANTOPRAZOLE 40 MG TABLET.DR PO SCH (08:30)
[2022-03-27] MEDS: LEVOTHYROXINE SODIUM 50 MCG TABLET PO SCH (08:30)
[2022-03-27] MEDS: PREGABALIN 25 MG CAPSULE PO SCH ×3 (08:30→16:43)
[2022-03-27] MEDS: MONTELUKAST SODIUM (10MG) 10 MG TABLET PO SCH (08:30)
[2022-03-27] MEDS: POLYETHYLENE GLYCOL 3350 17 GM POWD.PACK PO SCH (08:30)
[2022-03-27] MEDS: DOCUSATE SODIUM LIQ 100 MG/10 ML UDC PO SCH ×2 (08:31→16:43)
[2022-03-27] MEDS: PROPRANOLOL HCL 10 MG TABLET PO SCH (08:32)
[2022-03-27] MEDS: LIDOCAINE 5% (PATCH) 1 EA PATCH TP SCH (08:33)
[2022-03-27] MEDS: AMMONIUM LACTATE 227 GM BOTTLE TP SCH ×2 (08:54→16:46)
[2022-03-27] MEDS: CLOTRIMAZOLE 1% 15 GM TUBE TP SCH ×2 (08:54→16:46)
[2022-03-27 16:00] VITALS: BP 100/69
--- NOTE | 2022-03-27 18:43 | NUR ---
RN-NOTES PATIENT IS VISIBLE IN THE UNIT CALM AND COOPERATIVE ABLE TO MAKE NEEDS KNOWN TO THE STAFF .COMPLIANT WITH MEDICATIONS,NO ACUTE DISTRESS NOTED. AMBULATORY STEADY GAIT.WILL CONT. MONITORING FOR SAFETY AND BEHAVIOR. WILL ENDORSE TO INCOMING NURSE FOR CONTINUITY OF CARE.
[2022-03-27 20:18] VITALS: BP 138/82
[2022-03-27] MEDS: SIMVASTATIN 20 MG TABLET PO SCH (21:08)
[2022-03-27] MEDS: CLOZAPINE 100 MG TABLET PO SCH (21:09)
[2022-03-28 08:00] VITALS: BP 111/65
[2022-03-28] MEDS: PROPRANOLOL HCL 10 MG TABLET PO SCH (09:00)
[2022-03-28] MEDS: POLYETHYLENE GLYCOL 3350 17 GM POWD.PACK PO SCH ×2 (09:00→09:27)
[2022-03-28] MEDS: DOCUSATE SODIUM LIQ 100 MG/10 ML UDC PO SCH ×3 (09:00→17:00)
[2022-03-28] MEDS: MONTELUKAST SODIUM (10MG) 10 MG TABLET PO SCH (09:26)
[2022-03-28] MEDS: PANTOPRAZOLE 40 MG TABLET.DR PO SCH (09:26)
[2022-03-28] MEDS: LIDOCAINE 5% (PATCH) 1 EA PATCH TP SCH (09:27)
[2022-03-28] MEDS: NICOTINE PATCH (14MG) 14 MG PATCH.TD24 TD SCH (09:27)
[2022-03-28] MEDS: LEVOTHYROXINE SODIUM 50 MCG TABLET PO SCH (09:27)
[2022-03-28] MEDS: DIVALPROEX SODIUM 500 MG TABLET.DR PO SCH ×3 (09:27→18:09)
[2022-03-28] MEDS: CLOZAPINE 25 MG TABLET PO SCH ×2 (09:27→18:08)
[2022-03-28] MEDS: CLOTRIMAZOLE 1% 15 GM TUBE TP SCH ×2 (09:34→17:00)
[2022-03-28] MEDS: AMMONIUM LACTATE 227 GM BOTTLE TP SCH ×2 (09:35→17:00)
[2022-03-28] MEDS: PREGABALIN 25 MG CAPSULE PO SCH ×3 (09:35→18:08)
[2022-03-28] MEDS: METFORMIN 500 MG TABLET PO SCH ×2 (09:35→18:08)
--- NOTE | 2022-03-28 10:00 | NUR ---
REFUSED COLACE AND MIRALAX.
[2022-03-28 16:01] VITALS: BP 128/63
[2022-03-28 20:01] VITALS: BP 106/63
[2022-03-28] MEDS: CLOZAPINE 100 MG TABLET PO SCH (21:13)
[2022-03-28] MEDS: SIMVASTATIN 20 MG TABLET PO SCH (21:14)
[2022-03-29 08:00] VITALS: BP 126/65
[2022-03-29] MEDS: NICOTINE PATCH (14MG) 14 MG PATCH.TD24 TD SCH (08:08)
[2022-03-29] MEDS: POLYETHYLENE GLYCOL 3350 17 GM POWD.PACK PO SCH (08:08)
[2022-03-29] MEDS: LEVOTHYROXINE SODIUM 50 MCG TABLET PO SCH (08:09)
[2022-03-29] MEDS: CLOZAPINE 25 MG TABLET PO SCH (08:09)
[2022-03-29] MEDS: DOCUSATE SODIUM LIQ 100 MG/10 ML UDC PO SCH ×2 (08:09→17:00)
[2022-03-29] MEDS: PANTOPRAZOLE 40 MG TABLET.DR PO SCH (08:09)
[2022-03-29] MEDS: MONTELUKAST SODIUM (10MG) 10 MG TABLET PO SCH (08:09)
[2022-03-29] MEDS: PREGABALIN 25 MG CAPSULE PO SCH ×3 (08:09→17:08)
[2022-03-29] MEDS: DIVALPROEX SODIUM 500 MG TABLET.DR PO SCH ×3 (08:09→17:07)
[2022-03-29] MEDS: METFORMIN 500 MG TABLET PO SCH ×2 (08:09→17:08)
[2022-03-29] MEDS: PROPRANOLOL HCL 10 MG TABLET PO SCH (08:10)
[2022-03-29] MEDS: LIDOCAINE 5% (PATCH) 1 EA PATCH TP SCH (08:16)
[2022-03-29] MEDS: AMMONIUM LACTATE 227 GM BOTTLE TP SCH ×2 (08:17→17:17)
[2022-03-29] MEDS: CLOTRIMAZOLE 1% 15 GM TUBE TP SCH ×2 (08:21→17:17)
[2022-03-29 16:00] VITALS: BP 111/72
--- NOTE | 2022-03-29 19:44 | NUR ---
GPS RN OPENING NOTES: RECEIVED PATIENT IN BED, AWAKE, A/O X3. BLUNTED AFFECT, GUARDED, LABILE, ANXIOUS. NO S/S OF DISTRESS. RESPIRATION EVEN AND UNLABORED WITH EQUAL RISE AND FALL OF THE CHEST, ON ROOM AIR. OFFERED FLUID AND SNACKS TOLERATED. BED IN LOW LOCKED POSITION, CALL STALLWORTH WITHIN REACH. WILL CONTINUE TO MONITOR Q15 FOR MOOD, SAFETY AND BEHAVIOR.
[2022-03-29 20:00] VITALS: BP 109/60
[2022-03-29] MEDS: CLOZAPINE 100 MG TABLET PO SCH (21:42)
[2022-03-29] MEDS: SIMVASTATIN 20 MG TABLET PO SCH (21:42)
--- NOTE | 2022-03-29 21:46 | NUR ---
GPS RN NOTES: CLOZARIL 50MG WASTED PER PARTIAL DOSE ORDER.
[2022-03-29] MEDS: IBUPROFEN 200 MG TABLET PO PRN (22:04)
--- NOTE | 2022-03-29 22:07 | NUR ---
GPS RN NOTES: PATIENT C/O GENERALIZED BODY PAIN. MOTRIN 600MG GIVEN PO AT 2204. WILL CONTINUE TO MONITOR.
--- NOTE | 2022-03-29 23:23 | NUR ---
GPS RN NOTES: WEEKLY SKIN ASSESSMENT DONE, PICTURES TAKEN AND PLACED IN PATIENT CHART. NO NEW SKIN ISSUES.
--- NOTE | 2022-03-30 06:46 | NUR ---
GPS RN CLOSING NOTES: PATIENT IS CURRENTLY SLEEPING IN BED. PATIENT SLEPT 8HRS THIS SHIFT. NO S/S OF DISTRESS. RESPIRATION EVEN AND UNLABORED WITH EQUAL RISE AND FALL OF THE CHEST, ON ROOM AIR. BED IN LOW LOCKED POSITION, CALL STALLWORTH WITHIN REACH. ALL PATIENT CARE NEEDS HAVE BEEN MET ANTICIPATED. WILL CONTINUE TO MONITOR Q15 FOR SAFETY, MOOD AND BEHAVIOR AND ENDORSE TO AM SHIFT.
[2022-03-30 07:25] LABS: BASOPHILS % (AUTO) 0.3 % (0.0-2.0); HEMATOCRIT 35 % (39-51); HEMOGLOBIN 12.1 g/dL (13.5-17.5); LYMPHOCYTES # (AUTO) 1.8 K/uL (0.8-4.8); LYMPHOCYTES % (AUTO) 43.3 % (20.0-44.0); MEAN CORPUSCULAR HGB CONC 34 g/dl (31.0-36.0); MEAN CORPUSCULAR VOLUME 89 fL (80-96); MONOCYTES # (AUTO) 0.4 K/uL (0.1-1.30); MONOCYTES % (AUTO) 8.3 % (2.0-12.0); NEUTROPHILS % (AUTO) 48.1 % (43.0-81.0); PLATELET COUNT (AUTO) 65 K/uL (150-450); RED BLOOD CELL COUNT(AUTO) 3.99 MIL/uL (4.5-6.0); WHITE BLOOD COUNT (AUTO) 4.3 K/uL (4.3-11.0)
[2022-03-30] MEDS: PANTOPRAZOLE 40 MG TABLET.DR PO SCH (07:30)
[2022-03-30] MEDS: LEVOTHYROXINE SODIUM 50 MCG TABLET PO SCH (07:30)
[2022-03-30 08:00] VITALS: BP 104/68
[2022-03-30] MEDS: METFORMIN 500 MG TABLET PO SCH ×2 (08:00→18:54)
[2022-03-30] MEDS: DOCUSATE SODIUM LIQ 100 MG/10 ML UDC PO SCH ×2 (09:00→16:39)
[2022-03-30 09:18] LABS: CALCIUM, SERUM 9.2 mg/dL (8.5-10.1); POTASSIUM 4.3 mmol/L (3.5-5.1)
[2022-03-30] MEDS: PROPRANOLOL HCL 10 MG TABLET PO SCH (09:34)
[2022-03-30] MEDS: NICOTINE PATCH (14MG) 14 MG PATCH.TD24 TD SCH (09:34)
[2022-03-30] MEDS: POLYETHYLENE GLYCOL 3350 17 GM POWD.PACK PO SCH (09:34)
[2022-03-30] MEDS: MONTELUKAST SODIUM (10MG) 10 MG TABLET PO SCH (09:35)
[2022-03-30] MEDS: PREGABALIN 25 MG CAPSULE PO SCH ×3 (09:35→17:42)
[2022-03-30] MEDS: CLOTRIMAZOLE 1% 15 GM TUBE TP SCH ×2 (09:38→17:43)
[2022-03-30] MEDS: AMMONIUM LACTATE 227 GM BOTTLE TP SCH ×2 (09:38→17:43)
[2022-03-30] MEDS: DIVALPROEX SODIUM 500 MG TABLET.DR PO SCH ×2 (09:43→13:00)
[2022-03-30] MEDS: LIDOCAINE 5% (PATCH) 1 EA PATCH TP SCH (09:43)
[2022-03-30 10:14] LABS: ALBUMIN 3.3 g/dL (3.4-5.0); BILIRUBIN,TOTAL 0.4 mg/dL (0.2-1.0)
[2022-03-30 16:00] VITALS: BP 127/72
[2022-03-30] MEDS ORDERED: DIVALPROEX SODIUM 500 MG TABLET.DR PO SCH (17:00)
--- NOTE | 2022-03-30 19:35 | NUR ---
GPS RN OPENING NOTES: RECEIVED PATIENT IN BED, AWAKE, A/O X3. APPEARS DEPRESSED, FLAT AFFECT, PASSIVE, ISOLATIVE, GUARDED, ANXIOUS, NEEDY. DENIES SI, HI AT THIS TIME. NO S/S OF DISTRESS. RESPIRATION EVEN AND UNLABORED WITH EQUAL RISE AND FALL OF THE CHEST, ON ROOM AIR. OFFERED FLUID AND SNACKS TOLERATED. BED IN LOW LOCKED POSITION, CALL STALLWORTH WITHIN REACH. WILL CONTINUE TO MONITOR Q15 FOR MOOD, SAFETY AND BEHAVIOR.
[2022-03-30 20:00] VITALS: BP 108/61
[2022-03-30] MEDS: SIMVASTATIN 20 MG TABLET PO SCH (21:53)
[2022-03-30] MEDS: CLOZAPINE 100 MG TABLET PO SCH (21:53)
[2022-03-31] MEDS: PANTOPRAZOLE 40 MG TABLET.DR PO SCH (07:30)
[2022-03-31] MEDS: LEVOTHYROXINE SODIUM 50 MCG TABLET PO SCH (07:30)
[2022-03-31 08:00] VITALS: BP 94/59
[2022-03-31 08:00] LABS: C-REACTIVE PROTEIN 1.8 mg/dL (0.0-0.9)
[2022-03-31] MEDS: METFORMIN 500 MG TABLET PO SCH ×2 (08:00→17:16)
[2022-03-31] MEDS: PROPRANOLOL HCL 10 MG TABLET PO SCH (09:00)
[2022-03-31] MEDS: DOCUSATE SODIUM LIQ 100 MG/10 ML UDC PO SCH ×2 (09:00→16:53)
[2022-03-31] MEDS: PREGABALIN 25 MG CAPSULE PO SCH ×3 (09:49→17:16)
[2022-03-31] MEDS: DIVALPROEX SODIUM 500 MG TABLET.DR PO SCH ×2 (09:50→12:19)
[2022-03-31] MEDS: POLYETHYLENE GLYCOL 3350 17 GM POWD.PACK PO SCH (09:51)
[2022-03-31] MEDS: LIDOCAINE 5% (PATCH) 1 EA PATCH TP SCH (09:51)
[2022-03-31] MEDS: MONTELUKAST SODIUM (10MG) 10 MG TABLET PO SCH (09:51)
[2022-03-31] MEDS: NICOTINE PATCH (14MG) 14 MG PATCH.TD24 TD SCH (09:51)
[2022-03-31] MEDS: CLOTRIMAZOLE 1% 15 GM TUBE TP SCH ×2 (09:52→17:15)
[2022-03-31] MEDS: AMMONIUM LACTATE 227 GM BOTTLE TP SCH ×2 (09:52→17:15)
[2022-03-31 16:00] VITALS: BP 99/59
[2022-03-31] MEDS: DIVALPROEX SODIUM 250 MG TABLET.DR PO SCH (17:16)
--- NOTE | 2022-03-31 20:11 | NUR ---
GPS RN OPENING NOTES: RECEIVED PATIENT IN BED, AWAKE, A/O X3. APPROPRIATE AFFECT, PASSIVE, ISOLATIVE, GUARDED, ANXIOUS, NEEDY, NOT INTERACTING WITH PEERS. DENIES SI, HI AT THIS TIME. NO S/S OF DISTRESS. RESPIRATION EVEN AND UNLABORED WITH EQUAL RISE AND FALL OF THE CHEST, ON ROOM AIR. OFFERED FLUID AND SNACKS TOLERATED. BED IN LOW LOCKED POSITION, CALL STALLWORTH WITHIN REACH. WILL CONTINUE TO MONITOR Q15 FOR MOOD, SAFETY AND BEHAVIOR.
[2022-03-31 20:15] VITALS: BP 102/62
[2022-03-31] MEDS: CLOZAPINE 100 MG TABLET PO SCH (22:12)
[2022-03-31] MEDS: SIMVASTATIN 20 MG TABLET PO SCH (22:12)
--- NOTE | 2022-03-31 22:17 | NUR ---
GPS RN NOTES: CLOZARIL 50MG WASTED PER PARTIAL DOSE ORDER.
--- NOTE | 2022-04-01 06:48 | NUR ---
GPS RN CLOSING NOTES: PATIENT IS CURRENTLY SLEEPING IN BED. PATIENT SLEPT 9HRS THIS SHIFT. NO S/S OF DISTRESS. RESPIRATION EVEN AND UNLABORED WITH EQUAL RISE AND FALL OF THE CHEST, ON ROOM AIR. BED IN LOW LOCKED POSITION, CALL STALLWORTH WITHIN REACH. ALL PATIENT CARE NEEDS HAVE BEEN MET ANTICIPATED. WILL CONTINUE TO MONITOR Q15 FOR SAFETY, MOOD AND BEHAVIOR AND ENDORSE TO AM SHIFT.
[2022-04-01 07:45] LABS: BASOPHILS % (AUTO) 0.3 % (0.0-2.0); HEMATOCRIT 34 % (39-51); HEMOGLOBIN 11.8 g/dL (13.5-17.5); LYMPHOCYTES # (AUTO) 1.6 K/uL (0.8-4.8); LYMPHOCYTES % (AUTO) 34.7 % (20.0-44.0); MEAN CORPUSCULAR HGB CONC 35 g/dl (31.0-36.0); MEAN CORPUSCULAR VOLUME 87 fL (80-96); MONOCYTES # (AUTO) 0.6 K/uL (0.1-1.30); NEUTROPHILS # (AUTO) 2.4 K/uL (1.8-8.9); PLATELET COUNT (AUTO) 90 K/uL (150-450); RED BLOOD CELL COUNT(AUTO) 3.88 MIL/uL (4.5-6.0); WHITE BLOOD COUNT (AUTO) 4.7 K/uL (4.3-11.0)
[2022-04-01] MEDS: LEVOTHYROXINE SODIUM 50 MCG TABLET PO SCH (07:58)
[2022-04-01 08:00] VITALS: BP 136/52
[2022-04-01] MEDS: DOCUSATE SODIUM LIQ 100 MG/10 ML UDC PO SCH ×2 (08:01→17:00)
[2022-04-01] MEDS: POLYETHYLENE GLYCOL 3350 17 GM POWD.PACK PO SCH (08:01)
[2022-04-01] MEDS: PROPRANOLOL HCL 10 MG TABLET PO SCH (08:02)
[2022-04-01] MEDS: PANTOPRAZOLE 40 MG TABLET.DR PO SCH (08:02)
[2022-04-01] MEDS: PREGABALIN 25 MG CAPSULE PO SCH ×3 (08:02→17:28)
[2022-04-01] MEDS: MONTELUKAST SODIUM (10MG) 10 MG TABLET PO SCH (08:02)
[2022-04-01] MEDS: METFORMIN 500 MG TABLET PO SCH ×2 (08:02→18:03)
[2022-04-01] MEDS: NICOTINE PATCH (14MG) 14 MG PATCH.TD24 TD SCH (08:05)
[2022-04-01] MEDS: CLOTRIMAZOLE 1% 15 GM TUBE TP SCH ×2 (08:07→17:55)
[2022-04-01] MEDS: AMMONIUM LACTATE 227 GM BOTTLE TP SCH ×2 (08:08→17:00)
[2022-04-01] MEDS: DIVALPROEX SODIUM 250 MG TABLET.DR PO SCH ×3 (08:12→17:28)
[2022-04-01] MEDS: LORAZEPAM 0.5 MG TABLET PO PRN (08:12)
--- NOTE | 2022-04-01 08:12 | NUR ---
RN-CO: ATIVAN 0.5 MG PO GIVEN FOR C/O "FEELING SCARY ".
[2022-04-01] MEDS: LIDOCAINE 5% (PATCH) 1 EA PATCH TP SCH (08:14)
--- NOTE | 2022-04-01 09:13 | NUR ---
VEENA Note: VEENA contacted pt's pillowcase cutter Silas ([phone]) and notified that pt will be discharged tomorrow 04/02/2022 to [facility].
[2022-04-01 11:07] LABS: *ANA ANTI-CENTROMERE B AB <0.2 AI (0.0-0.9); *ANA ANTI-DNA(DS) AB, QN <1 IU/mL (0-9); *ANA ANTI-JO-1 <0.2 AI (0.0-0.9); *ANA ANTICHROMATIN ANTIBODY <0.2 AI (0.0-0.9); *ANA RNP ANTIBODIES <0.2 AI (0.0-0.9); *ANA SJOGREN'S ANTI-SS-A <0.2 AI (0.0-0.9); *ANA SJOGREN'S ANTI-SS-B <0.2 AI (0.0-0.9); *ANAANTI-SCLERODERMA-70 AB <0.2 AI (0.0-0.9); *ANASMITH AB <0.2 AI (0.0-0.9)
[2022-04-01] MEDS: IBUPROFEN 200 MG TABLET PO PRN (12:24)
[2022-04-01 13:06] LABS: *SPE A/G RATIO 1.1 (0.7-1.7); *SPE ALPHA-1-GLOBULIN 0.2 g/dL (0.0-0.4); *SPE ALPHA-2-GLOBULIN 0.8 g/dL (0.4-1.0); *SPE M-SPIKE Not Observed g/dL (Not Observed)
[2022-04-01 16:00] VITALS: BP 112/71
--- NOTE | 2022-04-01 19:20 | NUR ---
GPS RN NOTES RECEIVED PATIENT IN BED, AWAKE, ALERT AND ORIENTED X2. NO S/SX OF ACUTE DISTRESS NOTED. PATIENT IS COOPERATIVE TO CARE, FLAT AFFECT, ANXIOUS, FORGETFUL, WITH MINIMAL INTERACTIONS WITH PEERS. NO VERBALIZATION OF THOUGHTS AND FEELINGS. BED IN LOW LOCKED POSITION. SAFETY PRECAUTIONS MAINTAINED. WILL CONTINUE TO MONITOR Q15 FOR MOOD, SAFETY AND BEHAVIOR.
[2022-04-01 20:00] VITALS: BP 111/69
--- NOTE | 2022-04-01 20:27 | NUR ---
GPS RN NOTES RECEIVED A CALL FROM LAB SPOKE TO UMM THAT PATIENT IS POSITIVE FOR COVID. PATIENT RECEIVED COVID VACCINATION AND BOOSTER DOSE ON 02/2022. PATIENT IS SYMPTOMATIC. VITAL SIGNS ARE STABLE, NO COUGH, BUT HAD ONE EPISODE OF LOOSE BOWEL MOVEMENT. CREATIVE LEAD CLAUDIO NOTIFIED WITH NO NEW ORDER AT THIS TIME. PER PIERO SNYDER, FOLLOW THE COVID PROTOCOLS, SUPPORTIVE CARE ONLY AND CALL NURSING ORGANIZATIONAL DEVELOPMENT SPECIALIST. PER NURSING ORGANIZATIONAL DEVELOPMENT SPECIALIST NAMAN, ISOLATE PATIENT, CALL ENGINEERING DEPARTMENT AND WILL PUT IN SABAS OVERFLOW IN THE MORNING. CONTACT AND AIRBORNE ISOLATION IMPLEMENTED. REINFORCES THE IMPORTANCE OF HANDWASHING. WILL CONTINUE TO MONITOR.
[2022-04-01] MEDS: CLOZAPINE 100 MG TABLET PO SCH (21:36)
[2022-04-01] MEDS: SIMVASTATIN 20 MG TABLET PO SCH (21:37)
[2022-04-02 01:07] LABS: IMMUNOGLOBULIN A, SERUM 175 mg/dL (90-386); IMMUNOGLOBULIN G, SERUM 1153 mg/dL (603-1613); IMMUNOGLOBULIN M, SERUM 71 mg/dL (20-172)
--- NOTE | 2022-04-02 06:15 | NUR ---
GPS RN NOTES DR. HAGER WAS CONTACTED BY CHARGE NURSE NOTIFIED THAT PATIENT IS POSITIVE FOR COVID. PER DR. HAGER, HE WILL SEE THE PATIENT THIS MORNING. WILL ENDORSE TO DAY SHIFT NURSE. Addendum: 04/02/22 at 0628 by MANUEL VASQUES RN DR. HAGER ORDERED 1:1 SITTER, NOTED AND CARRIED OUT. NURSING SEAFOOD TEAM MEMBER AWARE
[2022-04-02 08:00] VITALS: BP 128/66
[2022-04-02] MEDS: MONTELUKAST SODIUM (10MG) 10 MG TABLET PO SCH (08:56)
[2022-04-02] MEDS: PANTOPRAZOLE 40 MG TABLET.DR PO SCH (08:56)
[2022-04-02] MEDS: DIVALPROEX SODIUM 250 MG TABLET.DR PO SCH ×3 (08:56→16:14)
[2022-04-02] MEDS: PROPRANOLOL HCL 10 MG TABLET PO SCH (08:56)
[2022-04-02] MEDS: NICOTINE PATCH (14MG) 14 MG PATCH.TD24 TD SCH (08:56)
[2022-04-02] MEDS: METFORMIN 500 MG TABLET PO SCH ×2 (08:56→17:11)
[2022-04-02] MEDS: LEVOTHYROXINE SODIUM 50 MCG TABLET PO SCH (08:56)
[2022-04-02] MEDS: PREGABALIN 25 MG CAPSULE PO SCH ×3 (08:56→16:14)
[2022-04-02] MEDS: POLYETHYLENE GLYCOL 3350 17 GM POWD.PACK PO SCH (08:57)
[2022-04-02] MEDS: LIDOCAINE 5% (PATCH) 1 EA PATCH TP SCH (08:57)
[2022-04-02] MEDS: DOCUSATE SODIUM LIQ 100 MG/10 ML UDC PO SCH ×2 (08:57→16:15)
[2022-04-02] MEDS: AMMONIUM LACTATE 227 GM BOTTLE TP SCH ×2 (08:58→17:11)
[2022-04-02] MEDS: CLOTRIMAZOLE 1% 15 GM TUBE TP SCH ×2 (08:58→17:11)
--- NOTE | 2022-04-02 11:58 | NUR ---
SNF Referral: VEENA sent clinicals to Jeni ([phone]) [facility] for placement option. Pt is covid +. SW sent H & P, progress notes, and medication list.
--- NOTE | 2022-04-02 12:00 | NUR ---
SNF Contact: SW received a call from Jeni valles ([phone]) who stated that pt is accepted at [facility] ([phone]) and they will provide transportation.
--- NOTE | 2022-04-02 12:01 | NUR ---
VEENA Family Contact: SW contacted pt's sister Mary ([phone]) notified sister that pt is covid + and that [facility] is unable to take pt due to this. VEENA expressed he is accepted at [facility] and she was agreeable of this.
--- NOTE | 2022-04-02 14:47 | NUR ---
RN-NOTES PATIENT IN THE ROOM A/O X3 CALM,INTERMITTENTLY SLEEPING WITH BREATHING EVEN AND NONLABORED EASILY AROUSED. VITAL SIGNS WNL, NO ACUTE DISTRESS NOTED. COMPLIANT WITH MEDICATIONS. AIRBORNE AND CONTACT ISOLATION STRICTLY OBSERVED. ABLE TO MAKE NEEDS KNOWN TO THE STAFF.ALL NEEDS ATTENDED AND ANTICIPATED. WILL CONT. MONITORING FOR SAFETY AND BEHAVIOR.
--- NOTE | 2022-04-02 15:18 | NUR ---
VEENA Note: SW attempted to contact top case assembler Silas ([phone]) and notify of dc and change of placement. VEENA was unable to leave a voicemail due to voicebox being full.
[2022-04-02 16:00] VITALS: BP_SYST 94; BP_SYST 99; BP_DIAS 65
[2022-04-02] MEDS: CYANOCOBALAMIN 1,000 MCG/ML VIAL IM SCH (17:47)
[2022-04-02 20:00] VITALS: BP 109/60
[2022-04-02] MEDS: CLOZAPINE 100 MG TABLET PO SCH (21:28)
[2022-04-02] MEDS: SIMVASTATIN 20 MG TABLET PO SCH (21:28)
--- NOTE | 2022-04-03 04:57 | NUR ---
RN-NOTES PATIENT RESTING IN ROOM, EASILY AGITATED , CALM AND COOPERATIVE IN SHIFT. COMPLIANT WITH MEDICATIONS,NO ACUTE DISTRESS . SAFETY PRECAUTIONS IN PLACED, ALL NEEDS ATTENDED AND ANTICIPATED. WILL CONT. MONITORING FOR SAFETY AND BEHAVIOR.
--- NOTE | 2022-04-03 07:47 | NUR ---
SW Discharge Note: Patient will be discharged to [facility] facility called [facility] located at [address] [place] [address]; ([phone]). Facility will coordinate transportation at 11AM. Stretcher Leveler Operator spoke with Jeni Valdo ([phone]) who stated that pt is welcomed today. Patients sister Mary ([phone]) is agreeable. Patient is alert and oriented x3 and is unable to plan for self-care. Patient denies any suicidal or homicidal ideations. Patient is aware and agreeable with discharge plans. Patient will continue to follow-up with (psychiatrist) Dr. Rodrigues located at [address], [place]; ([phone]) and (cloth framer) Dr. Pierre Vazquez located at [address] [place] [address] Dr Goldstein [address] [place] [phone]; ([phone]). Patient presents with euthymic mood and congruent affect.
[2022-04-03 08:00] VITALS: BP 111/64
[2022-04-03] MEDS: PANTOPRAZOLE 40 MG TABLET.DR PO SCH (08:02)
[2022-04-03] MEDS: LEVOTHYROXINE SODIUM 50 MCG TABLET PO SCH (08:02)
[2022-04-03] MEDS: METFORMIN 500 MG TABLET PO SCH (08:02)
[2022-04-03] MEDS: NICOTINE PATCH (14MG) 14 MG PATCH.TD24 TD SCH (08:46)
[2022-04-03] MEDS: LIDOCAINE 5% (PATCH) 1 EA PATCH TP SCH (08:46)
[2022-04-03] MEDS: CLOTRIMAZOLE 1% 15 GM TUBE TP SCH (08:47)
[2022-04-03] MEDS: AMMONIUM LACTATE 227 GM BOTTLE TP SCH (08:47)
[2022-04-03] MEDS: DIVALPROEX SODIUM 250 MG TABLET.DR PO SCH (08:57)
[2022-04-03 08:58] VITALS: BP 111/64
[2022-04-03] MEDS: MONTELUKAST SODIUM (10MG) 10 MG TABLET PO SCH (08:58)
[2022-04-03] MEDS: PREGABALIN 25 MG CAPSULE PO SCH (08:58)
[2022-04-03] MEDS: PROPRANOLOL HCL 10 MG TABLET PO SCH (08:58)
[2022-04-03] MEDS: DOCUSATE SODIUM LIQ 100 MG/10 ML UDC PO SCH (08:59)
[2022-04-03] MEDS: POLYETHYLENE GLYCOL 3350 17 GM POWD.PACK PO SCH (08:59)
[2022-04-03] MEDS ORDERED: FOLIC ACID 1 MG TABLET PO SCH (09:00)
[2022-04-03] MEDS: CYANOCOBALAMIN 1,000 MCG/ML VIAL IM SCH (09:02)
--- NOTE | 2022-04-03 12:15 | NUR ---
RN-NOTES PATIENT HAD A DISCHARGE ORDER FROM DR. HAGER/COVERING FOR DR. PAVON ( PSYCHIATRIST).DR. CARMONA, [facility] MEDICALLY CLEARED PT. FOR DISCHARGE. PATIENT A/O X3 EPISODE OF FORGETFUL, AMBULATORY STEADY GAIT. PATIENT DID NOT VERBALIZE SI/HI,DENIES VISUAL/AUDITORY HALLUCINATIONS AT THE TIME OF DISCHARGE. REPORT WAS GIVEN TO JULIO (FILTER HELPER). PATIENT WAS SOCIAL STUDIES DEPARTMENT CHAIR BY [facility]IA GURNEY WITH TWO STAFF ASSIST. PATIENT LEFT THE UNIT IN STABLE CONDITION ,ALL BELONGINGS WAS GIVEN BACK TO THE PATIENT. N95 MASK WAS PROVIDED TO THE PATIENT.VITAL SIGNS FF: BP 111/64,P 66,R 18, TEMP. 97.6, O2 SAT. 96% RA. Addendum: 04/03/22 at 1352 by ZAHRAA HERNANDEZ RN PATIENT REFUSED FULL BODY ASSESSMENT AND PICTURE TAKEN PRIOR TO DISCHARGE, ,STATED" I'M FINE THERE'S NO PROBLEM WITH IT, I'M LEAVING ANYWAY". EXPLAINED HOSPITAL POLICIES BUT PATIENT STILL REFUSED.
--- NOTE | 2022-04-04 02:32 | NUR ---
RN NOTES:PT. C/O HEADACHE PRN TYLENOL 650 MG PO GIVEN PER PT.REQUEST, WILL CONTINUE TO MONITOR. Addendum: 04/04/22 at 0243 by MATTEO MCGRATH RN WRONG CHARTING, ERROR CHARTING
== END 2022-04-03 12:15 | DRG 885 ==
LOC: GPS 21:22
PROVIDERS: ADMIT Psychiatry & Neurology Psychosomatic Medicine; ATTEND Student in an Organized Health Care Education/Training Program
DX: F25.0 Schizoaffective disorder, bipolar type (principal); U07.1 COVID-19; D61.818 Other pancytopenia; R45.851 Suicidal ideations; J44.9 Chronic obstructive pulmonary disease, unspecified; E78.5 Hyperlipidemia, unspecified; E03.9 Hypothyroidism, unspecified; B35.1 Tinea unguium; D69.59 Other secondary thrombocytopenia; E11.42 Type 2 diabetes mellitus with diabetic polyneuropathy; E66.9 Obesity, unspecified; I10 Essential (primary) hypertension; K59.00 Constipation, unspecified; N28.1 Cyst of kidney, acquired; Z68.32 Body mass index [BMI] 32.0-32.9, adult; Z79.899 Other long term (current) drug therapy; Z86.61 Personal history of infections of the central nervous system; M54.9 Dorsalgia, unspecified; R16.0 Hepatomegaly, not elsewhere classified; L84 Corns and callosities; Z88.8 Allergy status to other drugs, medicaments and biological substances; R61 Generalized hyperhidrosis; R42 Dizziness and giddiness
CPT/HCPCS: 36415; 70450-TC; 76700-TC; 80048-TC; 80053-TC; 80061-TC; 80164-TC; 81001; 82607-TC; 82728-TC; 82784; 82962-TC; 83540-TC; 83735-TC; 84100-TC; 84155; 84165; 84439-TC; 84443-TC; 84481; 85025-TC; 86140-TC; 86225; 86235; 86334; 86431-TC; 86706; 86803; 87081-TC; 87086-TC; 87340; J3420; J8597